=== PATIENT | female | born 1990 | race Two or more races ===

== ENCOUNTER 2016-11-15 11:06 | Emergency (ER) | payer OTHER ==
--- NOTE | 2016-11-15 11:58 | ED Physician Documentation ---
History of Present Illness - Stated complaint Stated Complaint: EAR PAIN - Chief complaint Chief Complaint: Heent - History obtained from History obtained from: Patient - Additonal information Additional information: Patient is a healthy 25-year-old female presents with a one-day history of left- sided ear pain. She also has nasal congestion, and a sore throat. Has history of otitis media when she is a kid but has not had any columns with it for many years. She was swimming yesterday however the pain is inside not any outside of the year. Review of systems: For pertinent positive and negatives in the review of systems please see the history of present illness, otherwise all other systems have been reviewed and are negative. Dragon disclaimer: Parts of this medical record were created using voice recognition technology. Because of the inherent limitations of this system, occasional same sounding word substitutions do occur and persist despite proofreading. Please read the document for context. Review of Systems Constitutional: denies: Fever, Chills Ears: reports: Ear pain. denies: Drainage/discharge PD PAST MEDICAL HISTORY - Past Medical History Past Medical History: Yes Cardiovascular: Congestive heart failure, Other - Past Surgical History Past Surgical History: Yes Cardiovascular: Other - Present Medications Home Medications: Ambulatory Orders Medication Instructions Recorded Confirmed Amoxicillin 875 mg PO BID #14 tablet 11/15/16 Tramadol HCl 50 mg PO Q8HR PRN #10 tablet 11/15/16 - Allergies Allergies/Adverse Reactions: Allergies Allergy/AdvReac Type Severity Reaction Status Date / Time ibuprofen Allergy Rash Verified 11/15/16 11:13 - Social History Does the pt smoke?: No Smoking Status: Never smoker Does the pt drink ETOH?: No Does the pt have substance abuse?: No - Immunizations Immunizations are current?: Yes - POLST Patient has POLST: No PD ED PE NORMAL - Vitals Vital signs reviewed: Yes - General General: Alert and oriented X 3, No acute distress, Well developed/nourished - HEENT HEENT: Other (Left TM is slightly flat and convex. Is minimally red. The ear canals fine there is no evidence of otitis externa clinically there is mild right submandibular lymphadenopathy) Results - Vitals Vitals: Vital Signs - 24 hr 11/15/16 11:10 Temperature 37.2 C Heart Rate 102 H Respiratory 18 Rate Blood Pressure 139/88 H O2 Saturation 97 Oxygen O2 Source Room air PD MEDICAL DECISION MAKING - ED course Complexity details: reviewed results ED course: Well-appearing 25-year-old with left-sided ear pain with an examination consistent with mild otitis media. She is elected to initiate antibiotic therapy. A short course antibiotics will be initiated. Disposition: To home Clinical impression: 1. Otitis media left side-mild Departure - Departure Disposition: Home, Self Care Clinical Impression: Otitis media Qualifiers: Otitis media type: suppurative Laterality: left Chronicity: acute Condition: Good Instructions: ED Otitis Media Serous Adult Follow-Up: [facility] Batista [facility] [Provider Group] Prescriptions: Tramadol HCl 50 mg PO Q8HR PRN #10 tablet PRN Reason: Pain Amoxicillin 875 mg PO BID #14 tablet
[2016-11-15 12:06] VITALS: BP 115/81
== END 2016-11-15 12:05 | disposition home or self-care (01) ==
LOC: ED 11:06
DX: H66.92 Otitis media, unspecified, left ear (principal)
CPT/HCPCS: 99283

== ENCOUNTER 2017-04-20 16:09 | Outpatient (CLI) | payer OTHER ==
--- NOTE | 2017-04-21 18:19 | XRAY Report ---
DATE OF SERVICE: 04/20/2017 THREE VIEW RIGHT ANKLE: 04/20/2017 CLINICAL INDICATION: Pain. AP, lateral, oblique views of the right ankle demonstrate soft tissue swelling. There is no evidence of fracture or dislocation. No effusion is present. IMPRESSION: Soft tissue swelling, but no evidence of acute fracture. TD: 04/21/2017 19:19
== END 2017-04-20 16:10 | disposition home or self-care (01) ==
LOC: DI 16:09
PROVIDERS: ATTEND Family Medicine
DX: M25.571 Pain in right ankle and joints of right foot (principal); R22.41 Localized swelling, mass and lump, right lower limb